=== PATIENT | male | born 1995 | race Caucasian/White ===

== ENCOUNTER 2017-01-16 07:14 | Emergency (ER) | payer OTHER ==
[2017-01-16 07:55] LABS: CALCIUM 9.2 mg/dL (8.7-10.7); CARBON DIOXIDE 27 mmol/L (21-32); CREATININE 0.9 mg/dL (0.6-1.3); GLUCOSE,RANDOM 104 mg/dL (70-99); POTASSIUM 4.7 mmol/L (3.5-5.1); SODIUM 139 mmol/L (136-145)
[2017-01-16 07:59] LABS: HEMOGLOBIN 15.1 g/dL (13.7-17.5); MEAN CORPUSCULAR HEMOGLOBIN 31.5 pg (27.0-33.0); MEAN CORPUSCULAR HGB CONC 33.6 g/dL (32.0-36.0); MEAN CORPUSCULAR VOLUME 94.1 fL (79-92); PLATELET COUNT 220 x10_3/uL (163-337); RED BLOOD COUNT 4.78 x10_6/uL (4.6-6.1); WHITE BLOOD COUNT 6.2 x10_3/uL (4.2-9.1)
[2017-01-16 08:00] LABS: BLOOD UREA NITROGEN 7 mg/dL (7-18)
== END 2017-01-16 08:03 | disposition home or self-care (01) ==
LOC: ER 07:14
PROVIDERS: Emergency Medicine
DX: L73.9 Follicular disorder, unspecified (principal)
CPT/HCPCS: 36415; 80048; 99283